=== PATIENT | female | born 1985 | race African-American/Black ===

== ENCOUNTER 2023-06-13 23:55 | Emergency (ER) | payer OTHER ==
[~2023-06-13] VITALS: Ht 152.4 cm; Wt 60.3 kg
[2023-06-14 00:29] VITALS: TEMP 97.9
[2023-06-14] MEDS ORDERED: FLUORESCEIN SODIUM OPHTH 1 EA STRIP ONE (00:42)
[2023-06-14] MEDS: FLUORESCEIN SODIUM OPHTH 1 EA STRIP OP ONE (00:48)
[2023-06-14] MEDS ORDERED: OFLO5DRO LEFTEYE (00:57)
[2023-06-14 01:05] VITALS: BP 131/78; O2SAT 100
== END 2023-06-14 01:06 | disposition home or self-care (01) ==
LOC: ER 06-14 00:01
DX: S05.02XA Injury of conjunctiva and corneal abrasion without foreign body, left eye, initial encounter (principal); X58.XXXA Exposure to other specified factors, initial encounter; Y93.89 Activity, other specified; Y92.89 Other specified places as the place of occurrence of the external cause; Y99.8 Other external cause status